=== PATIENT | male | born 1960 | race African-American/Black ===

== ENCOUNTER 2021-09-09 16:05 | Emergency (ER) | payer OTHER ==
[~2021-09-09] VITALS: Ht 167.6 cm; Wt 62.0 kg
[2021-09-09] MEDS: IV NORMAL SALINE 1000ML BAG 1,000 ML IV ONE (17:15)
--- NOTE | 2021-09-09 17:36 | PHYS DOC ---
Past Medical History Past Medical History: Diabetes-Type II (PAPI CUBA MD) Past Surgical History: No Surgical History (PAPI CUBA MD) Smoking Status: Former Smoker Alcohol Use: Occasionally Drug Use: Marijuana (PAPI CUBA MD) General Adult EDM: Chief Complaint: LACERATION/AVULSION HPI: HPI: Patient is a 61 year old male presents immediately after a hand laceration with a knife, patient was opening a package with a box order person and cut his left hand. Patient states that he lost a lot of blood. He is on aspirin and Plavix. He states that he feels overall well. However, while patient was in the emergency department and attempted to stand up, patient became very lightheaded and nauseous. Patient sat back in chair and started to feel very ill. (PAPI CUBA MD) Review of Systems: Review of Systems: Constitutional: Denies fever or chills. [] Eyes: Denies change in visual acuity. [] HENT: Denies nasal congestion or sore throat. [] Respiratory: Denies cough or shortness of breath. [] Cardiovascular: Denies chest pain or edema. [] GI: Denies abdominal pain, nausea, vomiting, bloody stools or diarrhea. [] : Denies dysuria. [] Musculoskeletal: Denies back pain or joint pain. [] Integument: Denies rash. [] Neurologic: Denies headache, focal weakness or sensory changes. [] (PAPI CUBA MD) Heart Score: C/O Chest Pain: No Risk Factors: Risk Factors: DM, Current or recent (<one month) smoker, HTN, HLP, family history of CAD, obesity. Risk Scores: Score 0 - 3: 2.5% MACE over next 6 weeks - Discharge Home Score 4 - 6: 20.3% MACE over next 6 weeks - Admit for Clinical Observation Score 7 - 10: 72.7% MACE over next 6 weeks - Early Invasive Strategies (PAPI CUBA MD) Current Medications: Current Medications Medications (Trade) Dose Ordered Sig/Homero Start Time Stop Time Status Last Admin Dose Admin Sodium Chloride 1,000 ml @ 1,000 mls/hr 1X ONCE 09/09/21 17:15 09/09/21 18:14 (PAPI CUBA MD) Allergies: Allergies: Allergies Coded Allergies Type Severity Reaction Last Updated Verified No Known Drug Allergies 12/11/13 No (PAPI CUBA MD) Physical Exam: PE: Constitutional: Well developed, well nourished, no acute distress, non-toxic appearance. [] HENT: Normocephalic, atraumatic, bilateral external ears normal, oropharynx moist, no oral exudates, nose normal. [] Eyes: PERRLA, EOMI, conjunctiva normal, no discharge. [] Neck: Normal range of motion, no tenderness, supple, no stridor. [] Cardiovascular:Heart rate regular rhythm, no murmur [] Lungs & Thorax: Bilateral breath sounds clear to auscultation [] Abdomen: Bowel sounds normal, soft, no tenderness, no masses, no pulsatile masses. [] Skin: Warm, dry, no erythema, no rash. 3 cm laceration on left palm near thenar eminence [] Back: No tenderness, no CVA tenderness. [] Extremities: No tenderness, no cyanosis, no clubbing, ROM intact, no edema. [] Neurologic: Alert and oriented X 3, normal motor function, normal sensory function, no focal deficits noted. [] Psychologic: Affect normal, judgement normal, mood normal. [] (PAPI CUBA MD) Current Patient Data: Labs: CBC pending (PAPI CUBA MD) EKG: EKG: [] (PAPI CUBA MD) Radiology/Procedures: Radiology/Procedures: Left hand x-ray no acute changes [] Impression: Left hand laceration, orthostatic hypotension secondary to blood loss (PAPI CUBA MD) Course & Med Decision Making: Course & Med Decision Making Pertinent Labs and Imaging studies reviewed. (See chart for details) 61-year-old male seen and evaluated by myself. As I was preparing to suture his laceration, patient became ill upon standing, patient likely is orthostatic secondary to blood loss. Patient was given 1 L normal saline and CBC was drawn. X-ray was obtained which does not show any abnormalities. Patient was transferred to Dr. David at 1800 at the end of my shift. Laceration repair was yet to be done. (PAPI CUBA MD) Course & Med Decision Making 61-year-old male was seen by me at the beginning of my shift. I received signout. I went back to examine the patient after the x-ray did not show fracture. The patient has a brisk arterial bleed from the medial portion of the left thenar eminence. The thumb is slightly discolored and pale appearing compared to the rest of the fingers. However given his darker skin this is very difficult to determine. I spoke with hand surgery at and we will transfer the patient for further evaluation immediately by hand surgeon. I will not suture the laceration at this time. The patient's bleeding has been stopped with compression bandaging (MAUDE DAVID MD) Dragon Disclaimer: Dragon Disclaimer: This electronic medical record was generated, in whole or in part, using a voice recognition dictation system. (PAPI CUBA MD) Departure Departure Impression: Primary Impression: Injury of palmar artery of left hand Disposition: 02 SHORT TERM HOSPITAL Condition: STABLE Referrals: NORMA GALDAMEZ (PCP) PAPI CUBA MD September 09, 2021 17:36 MAUDE DAVID MD September 09, 2021 19:55
[2021-09-09 17:38] LABS: BASO # 0.1 x10^3/uL (0.0-0.2); BASO % 1 % (0-3); EOS # 0.2 x10^3/uL (0.0-0.7); EOS % 2 % (0-3); HEMATOCRIT 35.7 % (39.0-53.0); HEMOGLOBIN 11.9 g/dL (13.0-17.5); LYMPH # 2.8 x10^3/uL (1.0-4.8); LYMPH % 25 % (24-48); MEAN CORPUSCULAR HEMOGLOBIN 27 pg (25-35); MEAN CORPUSCULAR HGB CONC 33 g/dL (31-37); MEAN CORPUSCULAR VOLUME 82 fL (79-100); MONO # 0.7 x10^3/uL (0.0-1.1); MONO % 6 % (0-9); NEUT # 7.4 x10^3/uL (1.8-7.7); NEUT % 67 % (31-73); PLATELET COUNT 426 x10^3/uL (140-400); RED BLOOD COUNT 4.38 x10^6/uL (4.30-5.70); RED CELL DISTRIBUTION WIDTH 14.3 % (11.5-14.5); WHITE BLOOD COUNT 11.1 x10^3/uL (4.0-11.0)
[2021-09-09] MEDS: LIDOCAINE 1%/EPI 1:100,000 20 ML VIAL. INJ ONE (18:05)
[2021-09-09] MEDS: DIPHTH,PERTUSS(ACELL),TET TOX 0.5 ML DISP.SYRIN. VAX IM ONE (18:06)
--- NOTE | 2021-09-09 18:08 | RAD ---
Exam: Left hand 3 views INDICATION: Trauma, and pain TECHNIQUE: Frontal, lateral and oblique views of the left hand Comparisons: None FINDINGS: Bone mineralization is normal. No acute or healed fractures. Soft tissues are unremarkable. Joint spa cristina are well-maintained. IMPRESSION: No acute osseous abnormality Electronically signed by: Noemí Menjivar MD (09/09/2021 6:05 PM) MITESH
[2021-09-09 19:30] VITALS: BP 149/84
== END 2021-09-09 20:15 | disposition short-term general hospital (02) ==
LOC: ER 16:05
DX: S61.412A Laceration without foreign body of left hand, initial encounter (principal); E11.9 Type 2 diabetes mellitus without complications; Z87.891 Personal history of nicotine dependence; W26.0XXA Contact with knife, initial encounter; Y93.89 Activity, other specified; Y92.89 Other specified places as the place of occurrence of the external cause; Y99.8 Other external cause status
CPT/HCPCS: 36415; 73130; 85025; 90471; 90715; 96360; 96361; 99285; J3490; J7030